=== PATIENT | female | born 1950 | race Caucasian/White ===

== ENCOUNTER 2019-12-13 09:44 | Outpatient (CLI) | payer MEDICARE, OTHER, SELFPAY ==
--- NOTE | 2019-12-13 10:45 | NEURO_ITS ---
Patient Number: [id number] Impression: # Complains of left upper extremity discomfort and numbness when laying on left side. # No Carpal Tunnel Syndrome or ulnar neruopathy. # Normal needle/EMG exam. # Clinical correlation recommended; Higher invilvemtn such as neck or shoulder. Nerve Conduction Studies Anti Sensory Summary Table Stim Site NR Peak (ms) P-T Amp (?V) Site1 Site2 Delta-P (ms) Dist (cm) Adelfo (m/s) Left Median Anti Sensory (2-3nd Digit) Wrist 2.7 41.7 Wrist 2-3nd Digit 2.7 14.0 52 Wrist 2.9 51.3 Wrist 2-3nd Digit 2.7 14.0 52 Left Radial Anti Sensory (Base 1st Digit) Wrist 1.9 24.6 Wrist Base 1st Digit 1.9 0.0 Left Ulnar Anti Sensory (5th Digit) Wrist 2.1 31.9 Wrist 5th Digit 2.1 14.0 67 Motor Summary Table Stim Site NR Onset (ms) O-P Amp (mV) Site1 Site2 Delta-0 (ms) Dist (cm) Adelfo (m/s) Left Median Motor (Abd Poll Brev) Wrist 2.8 3.0 Elbow Wrist 4.9 28.0 57 Elbow 7.7 2.1 Left Ulnar Motor (Abd Dig Minimi) Wrist 2.4 6.8 A Elbow Wrist 4.9 29.0 59 A Elbow 7.3 6.0 F Wave Studies NR F-Lat (ms) L-R F-Lat (ms) Left Median (Mrkrs) (Abd Poll Brev) 25.94 Left Ulnar (Mrkrs) (Abd Dig Min) 26.53 EMG Side Muscle Nerve Root Ins Act Fibs Amp Dur Recrt Comment Left 1stDorInt Ulnar C8-T1 Nml Nml Nml Nml Nml Left Ext Indicis Radial (Post Int) C7-8 Nml Nml Nml Nml Nml Left Ext Digitorum Radial (Post Int) C7-8 Nml Nml Nml Nml Nml Left BrachioRad Radial C5-6 Nml Nml Nml Nml Nml Left PronatorTeres Median C6-7 Nml Nml Nml Nml Nml Left Abd Poll Brev Median C8-T1 Nml Nml Nml Nml Nml Left Biceps Musculocut C5-6 Nml Nml Nml Nml Nml Left Triceps Radial C6-7-8 Nml Nml Nml Nml Nml Left Deltoid Axillary C5-6 Nml Nml Nml Nml Nml MTDD
== END 2019-12-13 09:45 | disposition home or self-care (01) ==
LOC: ANHNEURO 09:46
PROVIDERS: PCP Family Medicine; Visit Provider Family Medicine
DX: R20.0 Anesthesia of skin (principal)
CPT/HCPCS: 95886; 95909

== ENCOUNTER → 2019-12-21 13:04 | Outpatient (CLI) | payer MEDICARE, OTHER, SELFPAY ==
--- NOTE | ~2019-12-21 | MR_ITS ---
EXAMINATION: MR cervical spine wo con EXAM DATE: 12/21/2019 14:18 INDICATION: Left arm numbness. TECHNIQUE: Multi-sequential, multiplanar MR images of the cervical spine were obtained without contra st. Axial T2, axial T2 MERGE sequence. Sagittal T1, T2, T2 fat saturation images also obtained. Com parison is made to prior examination from 08/15/2010. FINDINGS: There is moderate disc disease from C4 through T1. The vertebral bodies are aligned in the AP dimension. There are no suspicious marrow signal abnormalities. The spinal cord signal intensity and intrinsic morphology is normal. Paraspinal soft tissue is unremarkable. Level by level evaluation: C2-C3: Disc does not extend beyond the endplate margin. Uncovertebral joint arthropathy: None. Facet joint arthropathy: Mild bilateral. Neural foraminal stenosis: No stenosis. Central canal stenosis: No stenosis. C3-C4: Small central disc protrusion. Uncovertebral joint arthropathy: Mild right. Facet joint arthropathy: Moderate bilateral. Neural foraminal stenosis: Mild right. Central canal stenosis: Mild. C4-C5: There is a mild diffuse disc bulge. Uncovertebral joint arthropathy: Mild to moderate bilateral. Facet joint arthropathy: Moderate left, mild to moderate right. Neural foraminal stenosis: Moderate left, mild right. Central canal stenosis: Mild. C5-C6: There is a mild diffuse disc bulge. Uncovertebral joint arthropathy: Moderate left, mild to moderate right. Facet joint arthropathy: Mild bilateral. Neural foraminal stenosis: Moderate left, mild to moderate right. Central canal stenosis: Mild. C6-C7: There is a mild diffuse disc bulge. Uncovertebral joint arthropathy: Mild to moderate bilateral. Facet joint arthropathy: Mild to moderate left, mild right. Neural foraminal stenosis: Mild to moderate left, mild right. Central canal stenosis: Minimal. C7-T1: There is a mild diffuse disc bulge. Uncovertebral joint arthropathy: Moderate bilateral. Facet joint arthropathy: Mild bilateral. Neural foraminal stenosis: Mild to moderate bilateral. Central canal stenosis: Minimal. Compared to 2010, there is been significant interval progression in spondylosis. IMPRESSION: Overall moderate cervical spondylosis. Reviewed, dictated and finalized at location A.
== END ==
PROVIDERS: PCP Family Medicine; Visit Provider Family Medicine
DX: R20.2 Paresthesia of skin (principal); M47.892 Other spondylosis, cervical region
CPT/HCPCS: 72141

== ENCOUNTER 2021-09-20 10:13 | Outpatient (CLI) | payer MEDICARE, OTHER, SELFPAY ==
--- NOTE | ~2021-09-20 | XR_ITS ---
EXAMINATION: XR toe 1st RT min 2V DATE: 09/20/2021 10:32 INDICATION: Right great toe pain and clicking TECHNIQUE: Dorsal plantar, lateral and 2 oblique views of the great toe were obtained. COMPARISON: None FINDINGS: Alignment is normal. No fracture. Mild to moderate osteoarthritis of the first metatarsophalangeal angelina int. Additional minimal to mild osteoarthritis at the interphalangeal joints of the first-third toes. No erosions to suggest inflammatory arthropathy. 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 Reviewed, dictated and finalized at location A.
== END 2021-09-20 10:14 | disposition home or self-care (01) ==
LOC: ANHIMG 10:17
PROVIDERS: PCP Family Medicine; Visit Provider Nurse Practitioner Family
DX: M19.071 Primary osteoarthritis, right ankle and foot (principal)
CPT/HCPCS: 73660

== ENCOUNTER 2021-10-10 08:21 | Outpatient (CLI) | payer MEDICARE, OTHER, SELFPAY ==
--- NOTE | ~2021-10-10 | US_ITS ---
EXAMINATION: US soft tissue abdomen DATE: 10/10/2021 09:06 INDICATION: Spigelian hernia. Right lower quadrant abdominal pain. TECHNIQUE: Multiple grayscale and Doppler ultrasound images of the abdomen were obtained. COMPARISON: CT abdomen and pelvis 10/06/2016 FINDINGS: There is no abnormal mass or hernia in the right abdomen or right groin in the patient's ar ea of concern. IMPRESSION: 1. No abnormal mass or hernia in the right abdomen or right groin in the patient's area of concern. Reviewed, dictated and finalized at location A. IMPRESSION: 1. No abnormal mass or hernia in the right abdomen or right groin in the patien t's area of concern.
== END 2021-10-10 08:22 | disposition home or self-care (01) ==
PROVIDERS: PCP Family Medicine; Visit Provider Physician Assistant
DX: K43.9 Ventral hernia without obstruction or gangrene (principal); R10.31 Right lower quadrant pain
CPT/HCPCS: 76705

== ENCOUNTER → 2021-10-21 10:09 | Outpatient (CLI) | payer MEDICARE, OTHER, SELFPAY ==
--- NOTE | ~2021-10-21 | CT_ITS ---
EXAMINATION: CT abdomen pelvis w con DATE: 10/21/2021 10:43 INDICATION: Right lower quadrant abdominal pain. Spigelian hernia. TECHNIQUE: Computed tomography (CT) of the abdomen and pelvis was performed with 100 mL Omnipaque-300 intravenous contrast. Automated exposure control and iterative reconstruction technique were employe d. The dose-length product was 484.67 mGy-cm. COMPARISON: 10/06/2016 FINDINGS: Minimal dependent atelectasis in the bilateral lower lobes. Heart size is normal. Atherosclerotic cor onary artery calcification. No pericardial or pleural effusion. Bilateral breast implants with incomp lete hypoattenuation internal septation at the right implant suggesting intracapsular rupture. Small sliding-type hiatal hernia. Unchanged 1.2 cm low-attenuation cyst versus hemangioma at the left hepat ic lobe. Gallbladder, spleen, pancreas and bilateral adrenal glands are normal. Mild bilateral hydron ephrosis without evident obstructing stone or mass. Couple nonenhancing left renal cysts the largest measuring 1.3 cm. There are few scattered colonic diverticula without adjacent inflammatory change to suggest diverticulitis. Small bowel and appendix are normal bladder, anteverted uterus and bilateral adnexa are unremarkable.. No free intraperitoneal gas or fluid. No pathologically enlarged abdominal or pelvic lymphadenopathy. Mild lumbar dextrocurvature with mild spondylosis. Moderate lower thoraci c spondylosis. IMPRESSION: 1. Mild bilateral hydronephrosis without evident obstructing stone or mass which suggests possibility of chronic outlet obstruction or neurogenic bladder. 2. Small sliding-type hiatal hernia. 3. Mild diverticulosis. 4. Bilateral breast implants with likely right-sided intracapsular rupture. Reviewed, dictated and finalized at location B. IMPRESSION: 1. Mild bilateral hydronephrosis without evident obstructing stone or mass whic h suggests possibility of chronic outlet obstruction or neurogenic bladder. 2. Small sliding-type hiatal hernia. 3. Mild diverticulosis. 4. Bilateral breast implants with likely right-sided intracapsular rupture.
[2021-10-21 10:31] LABS: Estimated Glomerular Filt Rate > 60
== END ==
PROVIDERS: PCP Family Medicine; Visit Provider Physician Assistant
DX: R10.31 Right lower quadrant pain (principal); K43.9 Ventral hernia without obstruction or gangrene; K44.9 Diaphragmatic hernia without obstruction or gangrene; K57.30 Diverticulosis of large intestine without perforation or abscess without bleeding
CPT/HCPCS: 74177; Q9967

== ENCOUNTER 2023-12-10 07:46 | Outpatient (CLI) | payer MEDICARE, OTHER, SELFPAY ==
--- NOTE | ~2023-12-10 | MM_ITS ---
EXAMINATION: MM scrn delmi implant BI w osbaldo HISTORY: Screening mammogram TECHNIQUE: Craniocaudal and mediolateral oblique 3-D tomosynthesis images with implant displacement a nd synthetic 2-D images were generated. Craniocaudal and mediolateral oblique views of the breasts wi thout implant displacement were obtained using full field digital mammography. CAD analysis was submi tted and interpreted. COMPARISON: Comparison to multiple prior studies sequentially, with oldest reviewed study dated 11/2017. BREAST PARENCHYMAL COMPOSITION: Not dense: There are scattered areas of fibroglandular density. FINDINGS: There is no evidence of suspicious mass, calcification, or architectural distortion to sugg est malignancy in either breast. There has been no suspicious interval change. IMPRESSION: 1. No mammographic evidence of malignancy. 2. Recommend routine screening mammography in one year. BI-RADS Category 1: Negative Reviewed, dictated and finalized at location B.
== END 2023-12-10 07:47 | disposition home or self-care (01) ==
LOC: ANHIMG 07:48
PROVIDERS: PCP Family Medicine; Visit Provider Family Medicine
DX: Z12.31 Encounter for screening mammogram for malignant neoplasm of breast (principal)
CPT/HCPCS: 77063; 77067

== ENCOUNTER 2024-04-26 08:33 | Outpatient (CLI) | payer MEDICARE, OTHER, SELFPAY ==
--- NOTE | ~2024-04-26 | DEXA_ITS ---
Bone Density Report Name: MARY HERNANDEZ Age: 73 Sex: Female Ethnicity: White Date of : 1950 Indication: postmenopausal; screening for osteoporosis; height loss; Referring Provider: ARIC CORCORAN Study: Bone densitometry was performed. Exam Date: April 26, 2024 Accession number: [id number] Bone Density: Region BMD T-score Z-score Classification AP Spine(L1-L4) 0.572 -4.3 -2.0 Osteoporosis Femoral Neck (Left) 0.520 -3.0 -1.0 Osteoporosis Total Hip (Left) 0.785 -1.3 0.4 Osteopenia Femoral Neck (Right) 0.493 -3.2 -1.2 Osteoporosis Total Hip (Right) 0.766 -1.4 0.2 Osteopenia Total Hip Mean 0.776 -1.4 0.3 Osteopenia World Health Organization criteria for BMD impression classify patients as: Normal (T-score at or above -1.0), Osteopenia (T-score between -1.0 and -2.5), or Osteoporosis (T-score at or below -2.5). 10-year Fracture Risk: FRAX not reported because: Some T-score for Spine Total or Hip Total or Femoral Neck at or below -2.5 Clinical Information Provided by Patient: Patient maximum height was 63.0 Menopause Age: 49 No regular weight bearing exercise Drinks caffeinated beverages Onset of menses at age 12 Number of children 4 Impression: The patient has osteoporosis, based on the Total Spine T-score. Discussion: HIGH RISK OF FRACTURE. BONE DENSITY IS UNDESIRABLY LOW AT ONE OR MORE SKELETAL SITES, CONSISTENT WITH OSTEOPOROSIS. ALSO, BONE DENSITY IS LOWER THAN EXPECTED FOR AGE AND SEX AT ONE OR MORE SKELETAL SITES; RECOMMEND A DILIGENT SEARCH FOR SECONDARY CAUSES OF BONE LOSS. This patient's lowest T-score meets the World Health Organization's (WHO) criteria for osteoporosis at one or more sites (T-score -2.5 or below). In untreated patients, the risk of osteoporotic fracture increases approximately two-fold for each 1.0 SD decrease in T-score. Low bone density is not the only risk factor for fracture; also consider factors such as patient's age, frailty or poor health, risk of falling, risk of injury, previous osteoporotic fracture, family history of osteoporosis, cigarette smoking, low body weight, etc. Not everyone with low bone mineral density has osteoporosis; osteomalacia and other metabolic bone disorders should also be considered. Patients who have osteoporosis should be evaluated for specific diseases and conditions (secondary causes) that may cause or contribute to bone loss. The [place] Association of Clinical Endocrinologists (AACE) and National Osteoporosis Foundation (NOF) recommend pharmacologic intervention for all postmenopausal women whose T-score is in this range. Also, this patient's bone mineral density is below the range considered normal for healthy age-, sex-, and race-matched controls at least one site (Z-score -2.0 or below). This warrants careful evaluation for diseases and conditions that may contribute to accelerated bone loss. The patient should follow a healthful lifestyle (good nutrition with adequate calcium and vitamin D, and appropriate weight-bearing exercise). Follow-Up: Consider a repeat BMD and Vertebral Fracture Assessment (VFA) exam in 2 years or sooner if medically necessary, to reassess this patient's status. Reported by: LORELEI on 04/26/2024 9:18:00 AM. Reviewed, dictated and finalized at location AMelanie GARCIA
== END 2024-04-26 08:34 | disposition home or self-care (01) ==
LOC: ANHIMG 08:35
PROVIDERS: PCP Family Medicine; Visit Provider Family Medicine
DX: Z78.0 Asymptomatic menopausal state (principal); M81.0 Age-related osteoporosis without current pathological fracture; M85.852 Other specified disorders of bone density and structure, left thigh; M85.851 Other specified disorders of bone density and structure, right thigh
CPT/HCPCS: 77080

== ENCOUNTER 2024-12-12 13:10 | Outpatient (CLI) | payer MEDICARE, OTHER, SELFPAY ==
--- NOTE | ~2024-12-12 | MM_ITS ---
EXAMINATION: MM scrn delmi implant BI w osbaldo HISTORY: Screening mammogram TECHNIQUE: Craniocaudal and mediolateral oblique 3-D tomosynthesis images with implant displacement a nd synthetic 2-D images were generated. Craniocaudal and mediolateral oblique views of the breasts wi thout implant displacement were obtained using full field digital mammography. CAD analysis was submi tted and interpreted. COMPARISON: Comparison to multiple prior studies sequentially, with oldest reviewed study dated 11/2017. BREAST PARENCHYMAL COMPOSITION: Not dense: There are scattered areas of fibroglandular density. FINDINGS: There is no evidence of suspicious mass, calcification, or architectural distortion to sugg est malignancy in either breast. There has been no suspicious interval change. IMPRESSION: 1. No mammographic evidence of malignancy. 2. Recommend routine screening mammography in one year. BI-RADS Category 1: Negative Reviewed, dictated and finalized at location B.
--- OUTSIDE RECORDS SUMMARY | 2024-12-12 13:23 | XMS_ITS | Patient Health Record ---
Author Organization [facility] Address [address] [place] [id number] Support Name Relationship Address Phone MARY HERNANDEZ Guarantor Unknown [phone] Reason For Referral No Information Plan Of Treatment No Information
--- OUTSIDE RECORDS SUMMARY | 2024-12-12 13:23 | XMS_ITS | Clinical Summary ---
Author Organization [facility] Address [facility] [facility] [place] [address] Care Team Providers Care Dandy Operator Name Role Phone Unavailable Primary Care Provider Unavailabl e Source Comments [facility],non-owned Affiliates and Associated Physician Practices is amultiple site organization consisting of ambulatory clinics and hospital sitesin [place], [place], [place] and [place]. This disclosure is being madepursuant to the Care Everywhere program and may not contain all information available regarding this patient. Last updated 18.[facility] Immunizations Immunization Administration Dates Next Due INFLUENZA VACCINE, QUADR. (F LUZONE; FLULAVAL; FLUARIX; AFLURIA QUADRIVALENT; 6MO+), 0.5 ML (IIV4) 03/31/2019 Social History Tobacco Use Types Packs/Day Years Used Date Smoking Tobacco: Never Assessed Comments Unknown Sex and Gender Information Value Date Recorded Sex Assigned at Not on file Legal Sex Female 2:13 PM CDT Gender Identity Not on file Sexual Orientation Not on file Plan of Treatment Health Maintenance Due Date Last Done Comments BONE DENSITY TESTING 1950 COLOGUARD (AGES 45-75) - COL ON CA SCREENING 1950 COLON MONITORING 1950 COLONOSCOPY - COLON CA SCREENING 1950 CT COLONOGRAPHY - COLON CA SCREENING 1950 Colorectal Cancer Screening 1950 FIT - COLON CA SCREENING 1950 FLEX SIG - COLON CA SCREENING 1950 LIPID TESTING 1950 MAMMOGRAM 1950 HEPATITIS C SCREENING 11/17/1968 DTAP/TDAP/TD VACCINES (1 - Tdap) 1969 PNEUMOCOCCAL VACCINE 50+ (1 of 1 - PCV) 2000 ZOSTER VACCINE (1 of 2) 2000 COVID-19 VACCINE (1 - 2023-2 5 season) 2024 DEPRESSION SCREENING 06/01/2024 INFLUENZA VACCINE (#1) 2025 03/31/2019 Respiratory Syncytial Virus (RSV) Vaccine Pt: or over 60 yrs (1 - 1-dose 75+ series) 2025 HEPATITIS B VACCINE Aged Out No longe r eligible based on patient's age to complete this topic HIB VACCINE Aged Out No longer eligi ble based on patient's age to complete this topic HPV VACCINE Aged Out No longer eligi ble based on patient's age to complete this topic MENINGOCOCCAL (Group B) VACC INE SHARED DECISION-MAKING Aged Out No longer eligibl e based on patient's age to complete this topic MENINGOCOCCAL GROUPS A/C/Y/W VACCINE Aged Out No longer eligible b ased on patient's age to complete this [place] [place] [address] [facility] Transaction [employer] Address: [facility] [address] [place] [address] MEDICARE
--- OUTSIDE RECORDS SUMMARY | 2024-12-12 13:23 | XMS_ITS | Referral Summary ---
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 Left ear pain 11/11/2022 Mass of breast 05/16/2014 Social History Tobacco Use Types Packs/Day Years Used Date Smoking Tobacco: Never Smokeless Tobacco: Never Tobacco Cessation:Counseling Given: Not Answered Comments Unknown Sex and Gender Information Value Date Recorded Sex Assigned at Not on file Legal Sex Female 1:06 PM BUNDLE CLERK Gender Identity Not on file Sexual Orientation Not on file Last Filed Vital Signs Vital Sign Reading Time Taken Comments Blood Pressure - - Pulse - - Temperature - - Respiratory Rate 18 11/11/2022 10:25 AM CDT Oxygen Saturation - - Inhaled Oxygen Concentration - - Weight 63.5 kg (140 lb) 11/11/2022 10:25 AM CDT Height 161.3 cm (5' 3.5) 11/11/2022 10:25 AM CD T Body Mass Index 24.41 11/11/2022 10:25 AM CDT Plan of Treatment Not on file Procedures Procedure Name Priority Date/Time Associated Diagnosis Comments SCREENING MAMMOGRAM Routine 05/16/2014 9 :28 AM BUNDLE CLERK from Last 3 Months or Most Recently Relevant to Health Maintenance Results * Screening Mammogram (05/16/2014 9:28 AM BUNDLE CLERK) Anatomical Region Laterality Modality Breast N/A Mammography 05/16/2014 9:28 AM BUNDLE CLERK Narrative 05/16/2014 9:31 AM BUNDLE CLERK SABRINA ROTHMAN M.D. FINAL REPORT ACC# Date Time Exam [id number] May 16, 2014 09:28:00 [place] [id number] Screening Mamm Bilat Technologist(s): Celia Rojas; ; EXAMINATION: Mammogram Technique: Bilateral Full-Field Digital Screening Mammogram was performed. Views obtained: bilateral craniocaudal; bilateral craniocaudal implant displaced; bilateral mediolateral oblique; and bilateral mediolateral oblique implant displaced. Computer Aided Detection was performed with [employer].3 version 9.3. Mammogram Findings: There are scattered fibroglandular densities. There are bilateral sub-pectoral silicone gel implants. There is no suspicious abnormality in either breast. IMPRESSION: Annual screening mammography is recommended. OVERALL FINAL ASSESSMENT: BI-RADS CATEGORY 1: Negative. Requested By: Dictated By: SABRINA ROTHMAN M.D. on May 16 2014 9:31A This document has been electronically signed by: SABRINA ROTHMAN M.D. on May 16 2014 9:31A Procedure Note Provider, MD Criss - 10/03/2016 SABRINA ROTHMAN M.D. FINAL REPORT ACC# Date Time Exam [id number] May 16, 2014 09:28:00 [facility] [address] Screening Mamm Bilat Technologist(s): Celia Rojas; ; EXAMINATION: Mammogram Technique: Bilateral Full-Field Digital Screening Mammogram was performed. Views obtained: bilateral craniocaudal; bilateral craniocaudal implant displaced; bilateral mediolateral oblique; and bilateral mediolateral oblique implant displaced. Computer Aided Detection was performed with [employer] 1.3 version 9.3. Mammogram Findings: There are scattered fibroglandular densities. There are bilateral sub-pectoral silicone gel implants. There is no suspicious abnormality in either breast. IMPRESSION: Annual screening mammography is recommended. OVERALL FINAL ASSESSMENT: BI-RADS CATEGORY 1: Negative. Requested By: Dictated By: SABRINA ROTHMAN M.D. on May 16 2014 9:31A This document has been electronically signed by: SABRINA ROTHMAN M.D. on May 16 2014 9:31A us Historical Provider MD REYES MAMMO PROCEDURES Farhana l Result from Last 3 Months or Most Recently Relevant to Health Maintenance Insurance MEDICARE [employer] Care Teams Grease Remover Relationship Specialty Start Date End Date Warner Barker MD [address] [place] [address] PCP - General Family Medicine 10/28/22
--- OUTSIDE RECORDS SUMMARY | 2024-12-12 13:23 | XMS_ITS | Clinical Summary ---
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 Left ear pain 11/11/2022 Mass of breast 05/16/2014 Surgical History Surgery Date Site/Laterality Comments BELT ABDOMINOPLASTY Abdominoplasty - (Added by Conv) BREAST SURGERY Breast Surgery Cosmetic Procedures - (Added by Conv) BREAST IMPLANT REMOVAL Replacement, Correction Medical History Medical History Date Comments Age-related osteoporosis wit hout current pathological fracture Osteoporosis - (Added by Conv) Allergic rhinitis Ear problems Family History Medical History Relation Name Comments Bone cancer Father Bone cancer - ( Added by TW Conv) Cancer Father Heart disease Other 1 Heart Disease - (Added by TW Conv) Cancer Other 2 Cancer - (Added by TW Conv) Relation Name Status Comments Father Other 1 Other 2 Social History Tobacco Use Types Packs/Day Years Used Date Smoking Tobacco: Never Smokeless Tobacco: Never Tobacco Cessation:Counseling Given: Not Answered Comments Unknown Sex and Gender Information Value Date Recorded Sex Assigned at Not on file Legal Sex Female 1:06 PM CONTRACT MANAGEMENT SPECIALIST Gender Identity Not on file Sexual Orientation Not on file Obstetrics History Last Filed Vital Signs Vital Sign Reading [...] 11/11/2022 10:25 AM CDT Plan of Treatment Health Maintenance Due Date Last Done Comments Colon Cancer Screening-Colonoscopy 1950 Depression Screening 1950 Fall Risk Assessment 1950 Hepatitis C Screening 1950 Osteoporosis Screening-Bone Density Scan 1950 DTaP/Tdap/Td Vaccine (1 - Tdap) 1961 Hepatitis B Screening 1968 Pneumococcal vaccine 65+ (1 of 1 - PCV) 2000 Zoster Vaccine (1 of 2) 2000 Breast Cancer Screening-Mammogram 05/16/2015 014 Well Visit 65+ 11/23/2015 Covid-19 Vaccine (2 - season) 2024 Influenza Vaccine (#1) 2025 03/31/2019 Procedures Procedure Name Priority Date/Time Associated Diagnosis Comments SCREENING MAMMOGRAM Routine 05/16/2014 9 :28 AM CONTRACT MANAGEMENT SPECIALIST from Last 3 Months or Most Recently Relevant to Health Maintenance Results * Screening Mammogram (05/16/2014 9:28 AM CONTRACT MANAGEMENT SPECIALIST) Anatomical Region Laterality Modality Breast N/A Mammography 05/16/2014 9:28 AM CONTRACT MANAGEMENT SPECIALIST Narrative 05/16/2014 9:31 AM CONTRACT MANAGEMENT SPECIALIST SABRINA ROTHMAN M.D. FINAL REPORT ACC# Date Time Exam [id number] May 16, 2014 09:28:00 [facility] [id number] Screening Mamm Bilat Technologist(s): Celia Rojas; ; EXAMINATION: Mammogram Technique: Bilateral Full-Field Digital Screening Mammogram was performed. Views obtained: bilateral craniocaudal; bilateral craniocaudal implant displaced; bilateral mediolateral oblique; and bilateral mediolateral oblique implant displaced. Computer Aided Detection was performed with [employer].3 version 9.3. Mammogram Findings: There are scattered [...] M.D. FINAL REPORT ACC# Date Time Exam [id number] May 16, 2014 09:28:00 [facility] [address] Screening Mamm Bilat Technologist(s): Celia Rojas; ; EXAMINATION: Mammogram Technique: Bilateral Full-Field Digital Screening Mammogram was performed. Views obtained: bilateral craniocaudal; bilateral craniocaudal implant displaced; bilateral mediolateral oblique; and bilateral mediolateral oblique implant displaced. Computer Aided Detection was performed with [employer].3 version 9.3. Mammogram Findings: There are scattered [...] ROTHMAN M.D. on May 16 2014 9:31A Historical Provider MD REYES MAMMO PROCEDURES Farhana l Result from Last 3 Months or Most Recently Relevant to Health Maintenance Insurance MEDICARE FOR LIFE Care Teams Surplus Property Disposal Agent Relationship Specialty Start Date End Date Warner Barker MD [address] [place] [address] PCP - General Family Medicine 10/28/22
== END 2024-12-12 13:11 | disposition home or self-care (01) ==
LOC: CHSIMG 13:13
PROVIDERS: PCP Family Medicine; Visit Provider Family Medicine
DX: Z12.31 Encounter for screening mammogram for malignant neoplasm of breast (principal)
CPT/HCPCS: 77063; 77067

== ENCOUNTER 2025-02-10 01:46 | Day surgery (SDC) | payer MEDICARE, OTHER, SELFPAY ==
[2025-02-06 13:37] VITALS: BMI 25.4
[2025-02-10 06:21] VITALS: BP 166/77; PULSE 73; RESP 16; TEMP 36.8; O2SAT 99
[2025-02-10] MEDS: LACTATED RINGERS 1,000 ML 150 ML IV CONT (06:31)
[2025-02-10] MEDS: SIMETHICONE ORAL SUSPENSION 20 MG/0.3 ML 30 ML BOTTLE 1.8 ML PO (06:33)
--- NOTE | 2025-02-10 06:58 | P.PNAN_ITS ---
Anes - Initial Pre Proc Eval Procedure: Operation Date: 02/10/25 07:30 Proposed Procedures p Esophagogastroduodenoscopy EGD - Syed Montoya MD Date/Time: 02/10/25 06:58 Surgeon: Syed Montoya MD Pre Op Diagnosis: Dysphagia, unspecified Patient Data Age: 74 Gender: F Height: 1.6 m Weight: 66.1 kg Last Vital Signs Temp 36.8 C 02/10/25 06:21 Pulse 73 02/10/25 06:21 Resp 16 02/10/25 06:21 BP 166/77 H 02/10/25 06:21 Pulse Ox 99 02/10/25 06:21 O2 Del Method Room Air 02/10/25 06:21 Allergies Allergy/AdvReac Type Severity Reaction Status Date / Time denosumab Allergy Unknown Unknown Verified 02/10/25 06:20 iron Allergy Unknown burning Verified 02/10/25 06:20 sensation metaxalone Allergy Unknown back pain Verified 02/10/25 06:20 Home Medications ?Medication ?Instructions ?Recorded ?Confirmed ?Type naproxen sodium 220 mg capsule 220 mg PO .COMPLEX 01/3002/10/25 History (Aleve) Patient hx anesthesia problems: none Family hx anesthesia problems: none Results Review: All pre-operative results and documents have been reviewed as part of the pre- operative evaluation. [facility] Surgical History Surgical History Status post hernia repair spigelian History of breast augmentation Family History Family History Father Malignant neoplasm of prostate Family history of malignant neoplasm of bone Other Family history of malignant neoplasm Social History Social History (Updated 01/26/25 @ 13:45 by Maty Maloney) Social History: Smoking status: Never smoker Second hand tobacco smoke exposure: No Alcohol intake: current Alcohol use details: social drinker Substance use: never Substance use type: does not use Education: Don't Know Difficulty w/ Childcare or Family Care: No Living arrangements: with family Occupation/Education: retired Gender identity (if verbalized by the patient): Female Sexual Orientation (if Verbalized by the Patient): Straight or Heterosexual Spiritual care concerns: No Anes - Eval Final PreProcedure Day of Procedure 02/10/25 06:58 Patient weight: overweight Heart: regular rate and rhythm Lungs: clear to auscultation and normal air movement Airway: Mallampati scale class II Neurological: alert and oriented Last oral intake: >/= 8 hours ASA classification: I Emergent: no Anesthetic plan: proceed Anesthesia type and monitoring: general GIVS and standard monitoring Results Review: All pre-operative results and documents have been reviewed as part of the pre- operative evaluation. Informed Consent: The patient's anesthetic plan and its attendant risks and benefits were discussed with the patient/family/POA. Questions were solicited and answers provided to the satisfaction of the patient/family/POA.
[2025-02-10] MEDS: BENZOCAINE (*SP) 60 ML SPRAY CAN (HURRICAINE) 1 SPRAY MUCOUS MEM (07:33)
--- NOTE | 2025-02-10 07:33 | PM.IMHP ---
H&P: HPI History of Present Illness Date/Time: 02/10/25 07:33 Chief Complaint: Dysphagia Narrative: this patient has been complaining of years of intermittent dysphagia exclusively to solids. She does endorse occasional dysphagia but no weight loss, hematemesis, nausea vomiting. She is referred for EG Review of Systems Review of Systems: All systems reviewed & are unremarkable except as noted in HPI and below PMFSH Surgical History Surgical History Status post hernia repair spigelian History of breast augmentation Family History Family History Father Malignant neoplasm of prostate Family history of malignant neoplasm of bone Other Family history of malignant neoplasm Social History Social History (Updated 01/26/25 @ 13:45 by Maty Maloney) Social History: Smoking status: Never smoker Second hand tobacco smoke exposure: No Alcohol intake: current Alcohol use details: social drinker Substance use: never Substance use type: does not use Education: Don't Know Difficulty w/ Childcare or Family Care: No Living arrangements: with family Occupation/Education: retired Gender identity (if verbalized by the patient): Female Sexual Orientation (if Verbalized by the Patient): Straight or Heterosexual Spiritual care concerns: No Meds Home Medications and Allergies Home Medications ?Medication ?Instructions ?Recorded ?Confirmed ?Type naproxen sodium 220 mg capsule 220 mg PO .COMPLEX 02/11/23 02/10/25 History (Aleve) Allergies Allergy/AdvReac Type Severity Reaction Status Date / Time denosumab Allergy Unknown Unknown Verified 02/10/25 06:20 iron Allergy Unknown burning Verified 02/10/25 06:20 sensation metaxalone Allergy Unknown back pain Verified 02/10/25 06:20 Vital Signs Vital Signs - 24 hr 02/10/25 06:21 Temperature 98.3 F Pulse Rate 73 Respiratory Rate 16 Blood Pressure 166/77 H Pulse Oximetry 99 Oxygen Delivery Room Air Exam Const: General: cooperative and healthy appearing Resp: Effort & Inspection: normal respiratory effort and able to speak in complete sentences Auscultation: clear to auscultation bilaterally Cardio: Rate: regular rate Rhythm: regular rhythm GI: Inspection: normal to inspection GI Palp: No No hepatosplenomegaly present Auscultation: normal bowel sounds Rectal Exam: deferred Skin: General skin exam: normal color Psych: Appearance: grossly normal Mental Status: mental status grossly normal Assessment and Plan Assessment and plan (1) Dysphagia: Code(s): R13.10 - Dysphagia, unspecified Status: Acute Assessment and Plan: The patient is deemed a good candidate for the procedure. Consent signed. Will proceed.
[2025-02-10 07:46] VITALS: BP 123/69; PULSE 76; RESP 23; O2SAT 95
[2025-02-10 07:56] VITALS: BP 119/74; PULSE 76; RESP 25; O2SAT 95
[2025-02-10 08:06] VITALS: BP 140/90; PULSE 77; RESP 22; O2SAT 97
== END 2025-02-10 08:20 | disposition home or self-care (01) ==
PROVIDERS: PCP Family Medicine; Visit Provider Internal Medicine Gastroenterology
PROC: 0DJ08ZZ Inspection of Upper Intestinal Tract, Via Natural or Artificial Opening Endoscopic (ICD-10-PCS; CPT 43249; principal; 2025-02-10 07:30)
DX: K22.2 Esophageal obstruction (principal); K44.9 Diaphragmatic hernia without obstruction or gangrene; Z79.1 Long term (current) use of non-steroidal anti-inflammatories (NSAID); Z80.42 Family history of malignant neoplasm of prostate; Z80.8 Family history of malignant neoplasm of other organs or systems
CPT/HCPCS: 43249; J2003; J2704; J7120